=== PATIENT | female | born 1990 | race Caucasian/White ===

== ENCOUNTER 2024-04-20 17:46 | Emergency (ER) | payer SELFPAY ==
[~2024-04-20] VITALS: Ht 157.5 cm; Wt 104.3 kg
[2024-04-20 18:37] VITALS: BP 130/63; PULSE 80; RESP 18; TEMP 98.1; O2SAT 99
[2024-04-20] MEDS: ACETAMINOPHEN EXTRA STRENGTH 500 MG TAB PO ONE (19:25)
[2024-04-20] MEDS ORDERED: IBUP-1842 PO (21:40)
[2024-04-20] MEDS ORDERED: BENZ-300 PO (21:40)
[2024-04-20] MEDS ORDERED: ACET500T99 PO (21:40)
== END 2024-04-20 21:51 | disposition home or self-care (01) ==
LOC: EDBD 17:46 → MED 17:46
DX: J06.9 Acute upper respiratory infection, unspecified (principal); J40 Bronchitis, not specified as acute or chronic; Z79.899 Other long term (current) drug therapy
CPT/HCPCS: 71045; 99283; Q0092